=== PATIENT | female | born 1995 | race Caucasian/White ===

== ENCOUNTER 2019-03-12 14:16 | Emergency (ER) | payer BC ==
[~2019-03-12] VITALS: Ht 160 cm; Wt 86.3 kg
--- NOTE | 2019-03-12 14:45 | NUR ---
NOTIFIED OF BUSY ER WITH POSSBILE LONG WAIT TIME.
[2019-03-12 18:12] LABS: BILIRUBIN,URINE NEGATIVE (NEGATIVE); CLARITY,URINE CLEAR; COLOR,URINE YELLOW; GLUCOSE, URINE (UA) NEGATIVE (NEGATIVE); KETONES,URINE 2+ (NEGATIVE); LEUKOCYTE ESTERASE ,URINE NEGATIVE (NEGATIVE); NITRITE,URINE NEGATIVE (NEGATIVE); PROTEIN,URINE NEGATIVE (NEGATIVE)
[2019-03-12 18:22] LABS: BACTERIA,URINE TRACE /HPF
--- NOTE | 2019-03-12 18:40 | ED GU-Female ---
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 STATES SHE FELT HER SELF AND THINKS SHE HAS A VAGINAL PROLAPSE. HAS BEEN INC OF URINE AT TIMES AND TROUBLE GOING WHEN SHE THINKS SHE NEEDS TO VOID. Nursing Sepsis Screen: No Definite Risk Source: patient Exam Limitations: no limitations History of Present Illness Date Seen by Provider: Mar 12, 2019 Time Seen by Provider: 18:38 Initial Comments To ER if vaginal pressure. This was after painful intercourse on Beth Golden, since then she did have one episode of urinary incontinence, concern she has a vaginal prolapse. Timing/Duration: yesterday, getting worse Severity/Quality: moderate Location: vaginal Activities at Onset: none Prior Genitourinary Problems: none Associated Symptoms: denies symptoms Allergies and Home Medications Allergies Coded Allergies: No Known Drug Allergies (Unverified , 03/12/19) Home Medications No Active Prescriptions or Reported Meds Patient Home Medication List Home Medication List Reviewed: Yes Review of Systems Review of Systems Constitutional: see HPI EENTM: see HPI Respiratory: no symptoms reported Cardiovascular: no symptoms reported Genitourinary: see HPI Musculoskeletal: see HPI Skin: no symptoms reported Psychiatric/Neurological: No Symptoms Reported Past Edkphko-Kctier-Glstuq Hx Patient Social History Alcohol Use: Rarely Uses Recreational Drug Use: No Smoking Status: Never a Smoker Recent Foreign Travel: No Contact w/Someone Who Travel: No Recent Infectious Disease Expo: No Recent Hopitalizations: No Seasonal Allergies Seasonal Allergies: No Past Medical History Surgeries: No Respiratory: No Cardiac: No Neurological: No : 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 oz. kg; 33.00 BMI Method: General Appearance: WD/WN, no apparent distress HEENT: PERRL/EOMI, normal ENT inspection Respiratory: no respiratory distress, no accessory muscle use Gastrointestinal: normal bowel sounds, non tender Pelvic: normal external exam, other (no obvious prolapse of any sort on pelvic exam with Monique RN at the bedside. There is some cervical motion tenderness and cervical discharge however.) Extremities: normal range of motion Neurologic/Psychiatric: alert, normal mood/affect, oriented x 3 Skin: normal color, warm/dry Progress/Results/Core Measures Suspected Sepsis Recent Fever Within 48 Hours: No Infection Criteria Present: Suspected New Infection New/Unexplained Altered Menta: No Sepsis Screen: No Definite Risk SIRS Temperature: Pulse: 90 Respiratory Rate: 16 Blood Pressure 124 /83 Mean: 97 Results/Orders Lab Results Laboratory Tests Test 03/12/19 18:00 03/12/19 18:09 Range/Units Urine Color YELLOW Urine Clarity CLEAR Urine pH 6.0 5-9 Urine Specific [place] >=1.030 1.016-1.022 Urine Protein NEGATIVE NEGATIVE Urine Glucose (UA) NEGATIVE NEGATIVE Urine Ketones 2+ H NEGATIVE Urine Nitrite NEGATIVE NEGATIVE Urine Bilirubin NEGATIVE NEGATIVE Urine Urobilinogen 0.2 < = 1.0 MG/DL Urine Leukocyte Esterase NEGATIVE NEGATIVE Urine RBC (Auto) NEGATIVE NEGATIVE Urine RBC NONE /HPF Urine WBC 5-10 H /HPF Urine Crystals NONE /LPF Urine Bacteria TRACE /HPF Urine Casts NONE /LPF Urine Mucus NEGATIVE /LPF Urine Culture Indicated NO Micro Results Microbiology 03/12/19 Genital Culture, Resulted Pending 03/12/19 Wet Prep - Final, Resulted My Orders Orders - DAMARIS MASON APRN Wet Prep (03/12/19 17:55) Neisseria Gonorrhea Swab (03/12/19 17:55) Genital Culture (03/12/19 17:55) Urine Bedside (03/12/19 17:55) Ua Culture If Indicated (03/12/19 17:55) Chlamydia Trachomatis Swab (03/12/19 17:55) Ceftriaxone For Im Use (Rocephin For Im (03/12/19 19:00) Azithromycin Tablet (Zithromax Tablet) (03/12/19 19:00) Lidocaine 1% Inj 20 Ml (Xylocaine 1% Inj (03/12/19 19:00) Vital Signs/I&O 03/12/19 14:38 Temp 37.0 Pulse 90 Resp 16 B/P (MAP) 124/83 (97) Pulse Ox 100 O2 Delivery Room Air Capillary Refill : Less Than 3 Seconds Blood Pressure Mean: 97 Departure Impression Primary Impression: Cervicitis Disposition: 01 HOME, SELF-CARE Condition: Improved Departure-Patient Inst. Decision time for Depature: 18:49 Referrals: NO,LOCAL PHYSICIAN (PCP) Primary Care Physician REYNALDO EPPERSON ANGELA C DO Patient Instructions: NO INSTRUCTIONS GIVEN Add. Discharge Instructions: 1. We will call you if the culture results indicate need for further antibiotics. Follow-up with one of the air conditioning engineer/gynecologists listed. All discharge instructions reviewed with patient and/or family. Voiced understanding. Scripts No Active Prescriptions or Reported Meds DAMARIS MASON APRN Mar 12, 2019 18:40
[2019-03-12] MEDS ORDERED: AZITHROMYCIN 250 MG TAB (ZITHROMAX) PO SCH (19:00)
[2019-03-12] MEDS ORDERED: cefTRIAXone 1,000 MG/2.86 ml vial (IM ONLY) IM SCH (19:00)
[2019-03-12] MEDS ORDERED: LIDOCAINE 1% INJ 20 ML 20 ML VIAL INJ ONE (19:00)
[2019-03-12 19:03] VITALS: BP 109/84
[2019-03-17] MEDS ORDERED: FLUC150T PO (13:24)
== END 2019-03-12 19:03 | disposition home or self-care (01) ==
LOC: ER 14:18
DX: N72 Inflammatory disease of cervix uteri (principal)
CPT/HCPCS: 36415; 81000; 84703; 87070; 87205; 87210; 87491; 87591; 96372; 99284

== ENCOUNTER 2021-04-29 21:46 | Emergency (ER) | payer BC, OTHER ==
[~2021-04-29] VITALS: Ht 160 cm; Wt 88.0 kg
[~2021-04-29 21:46] MED LIST: FLUC150T PO
[2021-04-29 22:15] LABS: BASOPHILS % (AUTO) 0 % (0-10); EOSINOPHILS # (AUTO) 0.1 10^3/uL (0.0-0.3); EOSINOPHILS % (AUTO) 1 % (0-10); HEMATOCRIT 41 % (35-52); HEMOGLOBIN 13.5 g/dL (11.5-16.0); LYMPHOCYTES # (AUTO) 1.8 10^3/uL (1.0-4.0); LYMPHOCYTES % (AUTO) 19 % (12-44); MEAN CORPUSCULAR HEMOGLOBIN 29 pg (25-34); MEAN CORPUSCULAR HGB CONC 33 g/dL (32-36); MEAN CORPUSCULAR VOLUME 86 fL (80-99); MEAN PLATELET VOLUME 8.7 fL (9.0-12.2); MONOCYTES # (AUTO) 0.7 10^3/uL (0.0-1.0); MONOCYTES % (AUTO) 7 % (0-12); NEUTROPHILS # (AUTO) 6.8 10^3/uL (1.8-7.8); NEUTROPHILS % (AUTO) 72 % (42-75); PLATELET COUNT 389 10^3/uL (130-400); WHITE BLOOD COUNT 9.5 10^3/uL (4.3-11.0)
[2021-04-29 22:30] LABS: POTASSIUM 3.8 MMOL/L (3.6-5.0)
--- NOTE | 2021-04-29 22:34 | ED GU-Female ---
General Chief Complaint: - Reproductive Stated Complaint: BLEEDING, 6 WEEKS 5 DAYS Nursing Triage Note: REPORTS VAGINAL BLEEDING X2HRS, STATES 6 WEEKS . (ROBIN HEAD) History of Present Illness Date Seen by Provider: Apr 29, 2021 Time Seen by Provider: 21:55 Initial Comments 25-year-old female presents after a 2-hour history of vaginal bleeding, varying amounts. She is approximately 6 weeks gestation with her second , she is on certain of her blood type. She denies any abdominal pain or cramping. She has changed her pad once since symptoms began and mainly notices it when wiping after using the restroom. She has been having mild nausea in the evening and in the morning since early in . She has not seen her OB doctor yet. She had no complications with her previous . No aggressive physical activity or sexual intercourse today. She is not taking a vitamin, because of the nausea. History of depression, takes Zoloft. Timing/Duration: just prior to arrival Severity/Quality: mild Prior Genitourinary Problems: none Sexual [place] History: single partner, other (2 weeks) Associated Symptoms: denies symptoms (ROBIN HEAD) Allergies and Home Medications Allergies Coded Allergies: No Known Drug Allergies (Unverified , 03/12/19) Patient Home Medication List Home Medication List Reviewed: Yes (ROBIN HEAD) Fluconazole (Diflucan) 150 Mg Tablet, 150 MG PO DAILY, (Reported) Entered as Reported by: NORA LUNA on 03/17/19 1324 Review of Systems Review of Systems Constitutional: no symptoms reported, see HPI Genitourinary: see HPI, discharge (spotting, dark to bright blood. ) : Yes Expected Date of Delivery: Dec 23, 2021 LMP: Mar 13, 2021 (ROBIN HEAD) All Other Systemes Reviewed Negative Unless Noted: Yes (ROBIN HEAD) Past Zxwldjd-Hhzfnn-Zbfuwy Hx Patient Social History Tobacco Use?: No (second hand smoke exposure) Substance use?: No Alcohol Use?: No Pt feels they are or have been: No (ROBIN HEAD) Immunizations Up To Date First/Initial COVID19 Vaccinat: 05/08 Second COVID19 Vaccination Johnathon: 06/05 COVID19 Vaccine Jinrikisha Driver: MODERNLiv (ROBIN HEAD) Seasonal Allergies Seasonal Allergies: No (ROBIN HEAD BERTHA) Past Medical History Surgeries: No Respiratory: No Cardiac: No Neurological: No Expected Date of Delivery: Dec 23, 2021 Last Menstrual Period: Mar 13, 2021 Hx : 2 Hx Para: 1 Hx Total # of Abortions (Sp): 0 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 oz. kg; 34.00 BMI Method: General Appearance: WD/WN, no apparent distress, other (slightly tearful) Cardiovascular: normal peripheral pulses, regular rate, rhythm Respiratory: chest non-tender, lungs clear, normal breath sounds Gastrointestinal: normal bowel sounds, non tender, soft; No rebound, No tenderness Neurologic/Psychiatric: no motor/sensory deficits, alert, normal mood/affect, oriented x 3 Skin: normal color, warm/dry (ROBIN HEADP) Progress/Results/Core Measures Suspected Sepsis SIRS Temperature: Pulse: 93 Respiratory Rate: 16 Laboratory Tests 04/29/21 22:10: White Blood Count 9.5 Blood Pressure 131 /77 Mean: 95 Laboratory Tests 04/29/21 22:10: Creatinine 0.73, Platelet Count 389 (ROBIN HEADP) Results/Orders Lab Results Laboratory Tests Test 04/29/21 22:00 04/29/21 22:10 Range/Units Urine Color YELLOW Urine Clarity CLEAR Urine pH 6.0 5-9 Urine Specific [place] >=1.030 1.016-1.022 Urine Protein NEGATIVE NEGATIVE Urine Glucose (UA) NEGATIVE NEGATIVE Urine Ketones NEGATIVE NEGATIVE Urine Nitrite NEGATIVE NEGATIVE Urine Bilirubin NEGATIVE NEGATIVE Urine Urobilinogen 0.2 < = 1.0 MG/DL Urine Leukocyte Esterase NEGATIVE NEGATIVE Urine RBC (Auto) 1+ H NEGATIVE Urine RBC 2-5 H /HPF Urine WBC NONE /HPF Urine Squamous Epithelial Cells 0-2 /HPF Urine Crystals NONE /LPF Urine Bacteria TRACE /HPF Urine Casts NONE /LPF Urine Mucus NEGATIVE /LPF Urine Culture Indicated NO White Blood Count 9.5 4.3-11.0 10^3/uL Red Blood Count 4.72 3.80-5.11 10^6/uL Hemoglobin 13.5 11.5-16.0 g/dL Hematocrit 41 35-52 % Mean Corpuscular Volume 86 80-99 fL Mean Corpuscular Hemoglobin 29 25-34 pg Mean Corpuscular Hemoglobin Concent 33 32-36 g/dL Red Cell Distribution Width 11.9 10.0-14.5 % Platelet Count 389 130-400 10^3/uL Mean Platelet Volume 8.7 L 9.0-12.2 fL Immature Granulocyte % (Auto) 0 % Neutrophils (%) (Auto) 72 42-75 % Lymphocytes (%) (Auto) 19 12-44 % Monocytes (%) (Auto) 7 0-12 % Eosinophils (%) (Auto) 1 0-10 % Basophils (%) (Auto) 0 0-10 % Neutrophils # (Auto) 6.8 1.8-7.8 10^3/uL Lymphocytes # (Auto) 1.8 1.0-4.0 10^3/uL Monocytes # (Auto) 0.7 0.0-1.0 10^3/uL Eosinophils # (Auto) 0.1 0.0-0.3 10^3/uL Basophils # (Auto) 0.0 0.0-0.1 10^3/uL Immature Granulocyte # (Auto) 0.0 0.0-0.1 10^3/uL Sodium Level 137 135-145 MMOL/L Potassium Level 3.8 3.6-5.0 MMOL/L Chloride Level 103 98-107 MMOL/L Carbon Dioxide Level 21 21-32 MMOL/L Anion Gap 13 5-14 MMOL/L Blood Urea Nitrogen 15 7-18 MG/DL Creatinine 0.73 0.60-1.30 MG/DL Estimat Glomerular Filtration Rate 118 BUN/Creatinine Ratio 21 Glucose Level 96 70-105 MG/DL Calcium Level 10.0 8.5-10.1 MG/DL Human Chorionic Gonadotropin, Quant 14290 H <5 MIU/ML (BRANDEE MOSES DO) Vital Signs/I&O 04/29/21 04/29/21 04/29/21 21:56 21:56 23:20 Temp 36.1 36.3 Pulse 93 87 Resp 16 16 B/P (MAP) 131/77 (95) 129/68 Pulse Ox 99 99 100 O2 Delivery Room Air Room Air (BRANDEE MOSES DO) Vital Signs/I&O Capillary Refill : Less Than 3 Seconds (ROBIN HEAD) Blood Pressure Mean: 95 Progress Note : Time: 21:55 Progress Note Patient seen and evaluated, will obtain labs. Patient denies any needs for medications for nausea at this time. She is having no abdominal pain or cramping. 2300 serum hCG 15,000, patient continues to deny abdominal pain or cramping. All other labs normal. 2315 blood type A+. Patient ambulated to bathroom, no further vaginal bleeding on pad or when wiping. Discharge instructions and return precautions reviewed. (ROBIN HEAD) Departure Impression Primary Impression: Threatened in first trimester Disposition: 01 HOME, SELF-CARE Condition: Stable Departure-Patient Inst. Decision time for Depature: 22:30 (ROBIN HEAD) Referrals: NO,LOCAL PHYSICIAN (PCP) Primary Care Physician REYNALDO ROJAS DO Patient Instructions: Bleeding in Early (DC) Add. Discharge Instructions: Increase water intake, 16 ounces every 2 hours while awake. Try taking a vitamin, you can take it at lunch early afternoon when nausea is not present. Keep your scheduled appointment with your OB doctor. Monitor symptoms. Vaginal rest, nothing in vagina until you see Dr. Rojas. Use the Zofran every 6-8 hours as needed for nausea or vomiting. Return to the emergency department for new, urgent healthcare needs. Soaking pad, requiring changing it hourly for 2 hours in a row or associated abdominal pain with vaginal bleeding. All discharge instructions reviewed with patient and/or family. Voiced understanding. ATTENDING PHYSICIAN NOTE: I WAS PHYSICALLY PRESENT ER PHYSICIAN WHEN THIS PATIENT WAS IN ER, BUT I WAS NOT INVOLVED IN ANY DECISION MAKING OR ANY CARE OF THIS PATIENT. (BRANDEE MOSES DO) Copy Copies To 1: REYNALDO ROJAS AMY ARNP Apr 29, 2021 22:34 BRANDEE MOSES DO Apr 30, 2021 03:00
[2021-04-29 22:36] LABS: CREATININE SERUM 0.73 MG/DL (0.60-1.30)
[2021-04-29 22:42] LABS: BILIRUBIN,URINE NEGATIVE (NEGATIVE); CLARITY,URINE CLEAR; COLOR,URINE YELLOW; GLUCOSE, URINE (UA) NEGATIVE (NEGATIVE); KETONES,URINE NEGATIVE (NEGATIVE); LEUKOCYTE ESTERASE ,URINE NEGATIVE (NEGATIVE); NITRITE,URINE NEGATIVE (NEGATIVE); PROTEIN,URINE NEGATIVE (NEGATIVE)
[2021-04-29 22:51] LABS: BACTERIA,URINE TRACE /HPF; SQUAMOUS EPITHELIAL CELL,UR 0-2 /HPF
[2021-04-29] MEDS ORDERED: RX-ONDANSETRON 4 MG ODT (ZOFRAN) PPK #4 PO STA (23:04)
[2021-04-29 23:20] VITALS: BP 129/68
== END 2021-04-29 23:20 | disposition home or self-care (01) ==
LOC: EDUNIT# 21:46 → ER 21:52
DX: O20.0 Threatened abortion (principal); Z3A.01 Less than 8 weeks gestation of pregnancy
CPT/HCPCS: 36415; 80048; 81000; 84702; 84703; 85025; 86900; 86901

== ENCOUNTER → 2021-07-12 | Outpatient (CLI) | payer OTHER | LOC: LABNPT 13:24 | PROVIDERS: ATTEND Obstetrics & Gynecology | DX: Z36.89 Encounter for other specified antenatal screening (principal); Z3A.00 Weeks of gestation of pregnancy not specified | CPT/HCPCS: 82677; 84702; 86336 ==

== ENCOUNTER → 2021-08-02 | Outpatient (CLI) | payer OTHER, BC | LOC: CARD 08:44 | PROVIDERS: ATTEND Internal Medicine Cardiovascular Disease | DX: R42 Dizziness and giddiness (principal) | CPT/HCPCS: 93225; 93226; 93306 ==

== ENCOUNTER → 2021-08-02 | Outpatient (CLI) | payer OTHER, BC ==
--- NOTE | 2021-08-02 11:14 | Diagnostic Imaging Report ---
INDICATION: Supervision during normal . CORRELATION: None FINDINGS: Single viable intrauterine currently in a variable presentation, initially in a transverse orientation changing to breech presentation at time of scanning. Amount of amniotic fluid is normal at 17.8 cm. Placenta anterior and without evidence for previa. Visualized anatomical structures including the kidneys, bladder, stomach, four-chamber heart, three-vessel cord and insertion site, spine and extremities appearing unremarkable. However, there is question slight prominent appearance about the intracranial ventricles. Cervical length 3.5 cm. Maternal adnexa not visualized. Biometrical measurements are as follows: Biparietal 4.93 cm, age 21 weeks 0 days. Head circumference 18.61 cm, age 21 weeks 0 days. Abdominal circumference 14.46 cm, age 19 weeks 6 days. Femur length 3.20 cm, age 20 weeks 0 days. Sonographic estimate age: 20 weeks 4 days. Sonographic estimated date of delivery: 12/16/2021. Estimated Weight: 326 gm (+/- 48 gm). LMP percentile: 30%. heart rate: 150 beats per minute. number: 1 of 1. IMPRESSION: 1. Single viable intrauterine , currently in a variable presentation. Initially at transverse orientation, changing to breech presentation during imaging. 2. Sonographic estimated age 20 weeks 4 days, with an estimated date of delivery 12/16/2021. 3. There is question of mild hydrocephalus. Consideration for short-term follow-up imaging would be recommended for reassessment. Dictated by: Dictated on workstation # [id number]
== END ==
LOC: RAD 08:45
PROVIDERS: ATTEND Obstetrics & Gynecology
DX: Z34.02 Encounter for supervision of normal first pregnancy, second trimester (principal); Z3A.20 20 weeks gestation of pregnancy
CPT/HCPCS: 76805

== ENCOUNTER → 2021-08-25 | Outpatient (CLI) | payer BC, OTHER ==
--- NOTE | 2021-08-25 17:19 | Diagnostic Imaging Report ---
INDICATION: . COMPARISON: 08/02/2021. TECHNIQUE: Transabdominal ultrasound of the gravid uterus. FINDINGS: There is a single live intrauterine gestation in cephalic presentation. The placenta is anterior with no evidence of previa. The heart rate measures 155 BPM. A four-chamber heart is seen. The cerebellum and cisterna magna appear normal. The profile is seen. The nose and lips are seen. The amniotic fluid is subjectively normal. A vertical pocket measuring 4 cm is seen. Ventricles appear mildly prominent in size, measuring up to 8 mm which is at the upper limit of normal for this gestational age. IMPRESSION: 1. Single live intrauterine gestation. 2. Intracranial ventricles are at the upper limit of normal for this gestational age. Recommend continued follow-up. Dictated by: Dictated on workstation # [id number]
== END ==
LOC: RAD 15:15
PROVIDERS: ATTEND Obstetrics & Gynecology
DX: Z34.90 Encounter for supervision of normal pregnancy, unspecified, unspecified trimester (principal); Z3A.00 Weeks of gestation of pregnancy not specified
CPT/HCPCS: 76816

== ENCOUNTER 2021-12-15 11:50 | Outpatient (CLI) | payer OTHER ==
[~2021-12-15] VITALS: Ht 160 cm; Wt 94.8 kg
[2021-12-15 12:10] VITALS: BP 122/71
[2021-12-15 12:32] LABS: BILIRUBIN,URINE NEGATIVE (NEGATIVE); CLARITY,URINE SL CLOUDY; COLOR,URINE YELLOW; GLUCOSE, URINE (UA) NEGATIVE (NEGATIVE); KETONES,URINE NEGATIVE (NEGATIVE); LEUKOCYTE ESTERASE ,URINE TRACE (NEGATIVE); NITRITE,URINE NEGATIVE (NEGATIVE); PH,URINE 6.5 (5-9); PROTEIN,URINE NEGATIVE (NEGATIVE)
[2021-12-15 12:45] LABS: BACTERIA,URINE MODERATE /HPF
[2021-12-15 13:10] VITALS: BP_SYST 111; BP_SYST 122; BP_DIAS 64; BP_DIAS 71
[2021-12-15 13:40] VITALS: BP 111/66
[2021-12-15] MEDS ORDERED: CEPH500T PO (14:06)
--- NOTE | 2021-12-18 08:20 | Physician Query-Final Dx ---
GAYATHRI12/18/21 0820: Clinic Account Progress/Dx Physician Query: Please give diagnosis Please include #weeks gestation Date of Service Dec 15, 2021 at 11:50 REYNALDO EPPERSON DO 12/18/21 0918: Clinic Account Progress/Dx DIAGNOSIS: Diagnosis 40 week IUP Irregular contractions GAYATHRI,MarDec 18, 2021 08:20 REYNALDO EPPERSON DO Dec 18, 2021 09:18
== END 2021-12-15 14:12 | disposition home or self-care (01) ==
LOC: LDRP 11:50 → WSo 11:50
PROVIDERS: ATTEND Obstetrics & Gynecology
DX: O26.851 Spotting complicating pregnancy, first trimester (principal); O62.9 Abnormality of forces of labor, unspecified; Z3A.00 Weeks of gestation of pregnancy not specified
CPT/HCPCS: 81000; 87088

== ENCOUNTER 2021-12-17 05:50 | Inpatient (IN) | payer OTHER ==
[~2021-12-17] VITALS: Ht 160 cm; Wt 95.4 kg
[2021-12-17] VITALS (46 sets, daily range): BP systolic 101–135; BP diastolic 51–80
[~2021-12-17 05:50] MED LIST changes: +CEPH500T PO
[2021-12-17] MEDS ORDERED: SERT-413 PO (06:00)
[2021-12-17] MEDS ORDERED: D5 LR IV SOLUTION 1,000 ML IV ONE (06:33)
[2021-12-17 06:36] LABS: BILIRUBIN,URINE NEGATIVE (NEGATIVE); CLARITY,URINE CLEAR; COLOR,URINE YELLOW; GLUCOSE, URINE (UA) NEGATIVE (NEGATIVE); KETONES,URINE NEGATIVE (NEGATIVE); LEUKOCYTE ESTERASE ,URINE NEGATIVE (NEGATIVE); NITRITE,URINE NEGATIVE (NEGATIVE); PROTEIN,URINE NEGATIVE (NEGATIVE)
[2021-12-17 06:43] LABS: BACTERIA,URINE TRACE /HPF; SQUAMOUS EPITHELIAL CELL,UR 0-2 /HPF; WBC,URINE 0-2 /HPF
[2021-12-17 06:51] LABS: BASOPHILS % (AUTO) 0 % (0-10); EOSINOPHILS # (AUTO) 0.1 10^3/uL (0.0-0.3); EOSINOPHILS % (AUTO) 1 % (0-10); HEMATOCRIT 38 % (35-52); HEMOGLOBIN 12.9 g/dL (11.5-16.0); LYMPHOCYTES # (AUTO) 0.8 10^3/uL (1.0-4.0); LYMPHOCYTES % (AUTO) 11 % (12-44); MEAN CORPUSCULAR HEMOGLOBIN 29 pg (25-34); MEAN CORPUSCULAR HGB CONC 34 g/dL (32-36); MEAN CORPUSCULAR VOLUME 85 fL (80-99); MONOCYTES # (AUTO) 0.6 10^3/uL (0.0-1.0); MONOCYTES % (AUTO) 8 % (0-12); NEUTROPHILS # (AUTO) 5.8 10^3/uL (1.8-7.8); NEUTROPHILS % (AUTO) 79 % (42-75); PLATELET COUNT 237 10^3/uL (130-400); WHITE BLOOD COUNT 7.3 10^3/uL (4.3-11.0)
[2021-12-17] MEDS: D5 LR IV SOLUTION 1,000 ML IV SCH ×2 (06:57→14:25)
[2021-12-17] MEDS ORDERED: fentaNYL 2 mcg/ml BUPIVA 0.125 100 ML ONE (09:45)
[2021-12-17] MEDS ORDERED: OXYTOCIN PRE-MIX DRIP 500 ML IV SCH (10:15)
[2021-12-17] MEDS ORDERED: fentaNYL INJ 100 MCG/2 ML AMP ONE (11:08)
[2021-12-17] MEDS ORDERED: BUPIVACAINE 0.25% 30 ML (SENSORCAINE) VIAL ONE (11:08)
[2021-12-17] MEDS ORDERED: LIDOCAINE 1% INJ 10 ML VIAL ONE (11:33)
[2021-12-17] MEDS ORDERED: fentaNYL 2 mcg/ml BUPIVA 0.125 100 ML EPI SCH (12:00)
[2021-12-17] MEDS ORDERED: LACTATED RINGERS 1,000 ML IV SCH (12:00)
[2021-12-17] MEDS ORDERED: ONDANSETRON 4 MG/2 ML (SDV) Z0FRAN IV PRN (12:00)
[2021-12-17] MEDS ORDERED: NALOXONE 0.4 MG/ML 1 ML (NARCAN) VIAL IV PRN ×2 (12:00→15:30)
[2021-12-17] MEDS ORDERED: LIDOCAINE 1% INJ 10 ML VIAL INJ ONE (12:00)
[2021-12-17] MEDS ORDERED: diphenhydrAMINE 50 MG/ML INJ (BENADRYL) IV PRN (12:00)
--- NOTE | 2021-12-17 13:55 | History & Physical-OB ---
OB - Chief Complaint & HPI Date/Time Date of Admission: Date of Admission: Dec 17, 2021 at 06:20 Date seen by a Provider: Dec 17, 2021 Time Seen by a Provider: 13:20 Chief Complaint/History OB-Reason for Admission/Chief: Onset of Labor Hx : 2 Hx Para: 1 Expected Date of Delivery: Dec 18, 2021 Gestational Age in Weeks: 39 Gestational Age in Days: 6 Admission Nurse Assessment Rev: Yes History of Labs A pos Antibody neg RI RPR NR HBsAg NR HIV NR GC neg GBS neg Allergies and Home Medications Allergies Coded Allergies: No Known Drug Allergies (Unverified , 03/12/19) Patient Home Medication List Home Medication List Reviewed: Yes Sertraline HCl (Sertraline HCl) 50 Mg Tablet, 50 MG PO DAILY, (Reported) Entered as Reported by: KATIE GUZMAN on 12/17/21 0600 Last Action: Reviewed Discontinued Medications Cephalexin (Cephalexin) 500 Mg Tablet, 500 MG PO QID, (Reported) Discontinued Reason: No Longer Taking Entered as Reported by: GIRISH GALEANA on 12/15/21 1406 Last Action: Discontinued Fluconazole (Diflucan) 150 Mg Tablet, 150 MG PO DAILY, (Reported) Discontinued Reason: No Longer Taking Entered as Reported by: NORA LUNA on 03/17/19 1324 OB - History Hx of Present Care: Yes Ultrasounds: Normal mid trimester US Obstetrical Complications: None Medical Complications: None Patient Past Medical History na Social History/Family History 2nd Hand Smoke Exposure: No Immunizations Influenza Vaccine Up-to-Date: No; Not Current First/Initial COVID19 Vaccine: 05/08 Second COVID19 Vaccination: 06/05 COVID19 Vaccine Testing Director: Moderna Hepatitis B: Yes OB - Admission Exam Physical Exam Vitals: Vital Signs 12/17/21 12/17/21 12/17/21 12:30 12:36 12:45 Temp 36.4 Pulse 80 Resp 18 B/P (MAP) 105/67 (80) Pulse Ox 98 O2 Delivery Room Air HEENT: NCAT Heart: Rhythm Normal Lungs: Clear Abdomen: Gravid Extremities: Normal Reflexes: Normal Cervical Dilatation: 4cm Effacement: 75% Station: -1 Membranes: Ruptured Amniotic Fluid: Clear Heart Rate: 130's Accelerations: Accelerations Present Decelerations: No Decelerations Short Term Variability: Present Floor Helper Variability: Average (6-25) Contractions on Admission: 6-10 Minutes Apart Intensity: Mild Labs Laboratory Tests Test 12/17/21 06:10 12/17/21 06:30 Range/Units Urine Color YELLOW Urine Clarity CLEAR Urine pH 6.0 5-9 Urine Specific [place] >=1.030 1.016-1.022 Urine Protein NEGATIVE NEGATIVE Urine Glucose (UA) NEGATIVE NEGATIVE Urine Ketones NEGATIVE NEGATIVE Urine Nitrite NEGATIVE NEGATIVE Urine Bilirubin NEGATIVE NEGATIVE Urine Urobilinogen 0.2 < = 1.0 MG/DL Urine Leukocyte Esterase NEGATIVE NEGATIVE Urine RBC (Auto) NEGATIVE NEGATIVE Urine RBC NONE /HPF Urine WBC 0-2 /HPF Urine Squamous Epithelial Cells 0-2 /HPF Urine Crystals NONE /LPF Urine Bacteria TRACE /HPF Urine Casts NONE /LPF Urine Mucus NEGATIVE /LPF Urine Culture Indicated NO White Blood Count 7.3 4.3-11.0 10^3/uL Red Blood Count 4.48 3.80-5.11 10^6/uL Hemoglobin 12.9 11.5-16.0 g/dL Hematocrit 38 35-52 % Mean Corpuscular Volume 85 80-99 fL Mean Corpuscular Hemoglobin 29 25-34 pg Mean Corpuscular Hemoglobin Concent 34 32-36 g/dL Red Cell Distribution Width 12.6 10.0-14.5 % Platelet Count 237 130-400 10^3/uL Mean Platelet Volume 10.0 9.0-12.2 fL Immature Granulocyte % (Auto) 1 % Neutrophils (%) (Auto) 79 H 42-75 % Lymphocytes (%) (Auto) 11 L 12-44 % Monocytes (%) (Auto) 8 0-12 % Eosinophils (%) (Auto) 1 0-10 % Basophils (%) (Auto) 0 0-10 % Neutrophils # (Auto) 5.8 1.8-7.8 10^3/uL Lymphocytes # (Auto) 0.8 L 1.0-4.0 10^3/uL Monocytes # (Auto) 0.6 0.0-1.0 10^3/uL Eosinophils # (Auto) 0.1 0.0-0.3 10^3/uL Basophils # (Auto) 0.0 0.0-0.1 10^3/uL Immature Granulocyte # (Auto) 0.1 0.0-0.1 10^3/uL OB - Assessment/Plan/Diagnosis Assessment Assessment: active labor, rupture of membranes Admission Dx 26 yo @ 39.6 weeks Active labor GBS neg SROM Admission Status: Inpatient Order (span 2 midnights) Reason for Inpatient Admission: 26 yo @ 39.6 weeks Active labor Plan Plan: Expectant Management (will augment labor with pitocin if dysfunctional contraction pattern continues.) REYNALDO EPPERSON DO Dec 17, 2021 13:55
[2021-12-17] MEDS ORDERED: CATHETER FLUSH 10 ML SYR IV SCH ×2 (14:00→22:00)
[2021-12-17] MEDS ORDERED: LIDOCAINE/EPI 2% 1:200,00 (XYLOCAINE) 10 ML VIAL ONE (14:55)
[2021-12-17] MEDS: OXYTOCIN PRE-MIX DRIP 500 ML IV SCH ×2 (15:11→15:43)
--- NOTE | 2021-12-17 15:18 | OB Labor & Delivery Record ---
L&D History Date of Service Date of Service: Dec 17, 2021 History Expected Date of Delivery: Dec 18, 2021 Gestational Age in Weeks: 39 Hx : 2 Hx Para: 1 Complications Events: Routine care Operative Indications (Cesarea: N/A-Vaginal Delivery Intrapartal Events: None L&D Stage1 Stage One Onset of Labor - Date: Dec 17, 2021 Monitors and Tracing Monitor Mode: Internal Heart Rate: 130 Monitor Accelerations: Uniform Monitor Decelerations: Variable Station: -2 Fpc Variability: Average (6-10) Short Term Variability: Present Presentation: Vertex Vital Signs VS - Last 72 Hours, by Label 12/17/21 12/17/21 12/17/21 12/17/21 06:11 06:11 08:40 09:00 Temp 36.4 36.4 36.2 Pulse 83 83 75 80 Resp 18 18 18 B/P (MAP) 120/74 (89) 119/74 (89) 134/60 (84) Pulse Ox 97 97 O2 Delivery Room Air Room Air Room Air Room Air 12/17/21 12/17/21 12/17/21 12/17/21 09:30 10:10 10:45 11:15 Temp 36.4 Pulse 80 80 88 84 Resp 18 18 18 18 B/P (MAP) 116/70 (85) 126/72 (90) 135/64 (87) 119/80 (93) Pulse Ox 99 O2 Delivery Room Air Room Air Room Air Room Air 12/17/21 12/17/21 12/17/21 12/17/21 11:20 11:25 11:30 11:35 Pulse 86 88 94 94 Resp 18 18 18 18 B/P (MAP) 125/80 (95) 119/65 (83) 108/58 (75) 121/73 (89) Pulse Ox 98 98 O2 Delivery Room Air Room Air Room Air Room Air 12/17/21 12/17/21 12/17/21 12/17/21 11:40 11:45 11:50 11:53 Pulse 86 86 91 90 Resp 18 18 18 18 B/P (MAP) 120/69 (86) 120/70 (87) 101/70 (80) 108/71 (83) Pulse Ox 98 97 97 97 O2 Delivery Room Air Room Air Room Air Room Air 12/17/21 12/17/21 12/17/21 12/17/21 11:56 11:58 12:00 12:03 Pulse 84 82 83 86 Resp 18 18 18 18 B/P (MAP) 117/75 (89) 110/69 (83) 104/68 (80) 109/61 (77) Pulse Ox 97 97 96 97 O2 Delivery Room Air Room Air Room Air Room Air 12/17/21 12/17/21 12/17/21 12/17/21 12:06 12:10 12:13 12:15 Pulse 84 74 76 81 Resp 18 18 18 18 B/P (MAP) 107/63 (78) 101/59 (73) 112/63 (79) 116/64 (81) Pulse Ox 97 97 97 98 O2 Delivery Room Air Room Air Room Air Room Air 12/17/21 12/17/21 12/17/21 12/17/21 12:18 12:21 12:24 12:29 Pulse 80 79 86 71 Resp 18 18 18 18 B/P (MAP) 112/66 (81) 109/71 (84) 104/60 (75) 111/61 (78) Pulse Ox 97 95 98 98 O2 Delivery Room Air Room Air Room Air Room Air 12/17/21 12/17/21 12/17/21 12/17/21 12:30 12:33 12:36 12:45 Temp 36.4 Pulse 80 75 84 80 Resp 18 18 18 B/P (MAP) 112/55 (74) 114/71 (85) 105/67 (80) Pulse Ox 98 98 98 98 O2 Delivery Room Air Room Air Room Air Room Air 12/17/21 12/17/21 12/17/21 12/17/21 13:00 13:15 13:30 13:45 Pulse 80 72 71 68 B/P (MAP) 118/62 (80) 120/69 (86) 114/51 (72) 107/59 (75) Pulse Ox 97 97 99 99 O2 Delivery Room Air Room Air Room Air Room Air Rupture of Membranes Spontaneous Ruture of Membrane: Yes Amniotic Membrane Rupture Time: 0400 Amniotic Membrane Fluid Desc.: Clear Vaginal Bleeding Description: Normal Show Induction/Anesthesia Epidural Cath Placement - Time: 1137 Progress/Notes Patient admitted with SROM, dysfunction contraction pattern treated with pitocin augmentation followed by epidural placement. She progressed to complete and + 2 station L&D Stage2 Stage Two Stage II Date: Dec 17, 2021 Monitors and Tracing Monitor Mode: External Heart Rate: 130 Monitor Accelerations: Uniform Monitor Decelerations: Variable Qa Automation Engineer Variability: Average (6-10) Short Term Variability: Present Position: Right Occiput Anterior Presentation: Vertex Cord Descript/Complications Cord Vessel Description: 3 Vessels Complications nuchal cord reduced x 1 Delivery Type Infant Delivery Method: Spontaneous Vaginal Anterior Shoulder: Left Episiotomy/Perineal Laceration Laceraction(s)/Extensions: Yes Episiotomy Description: Perineal Extension/lac, 1st degree Degree (describe repair) laceration repaired using 3-0 rapide in usual fashion Condition of Delivery 1 minute Comment: 8 5 minute Comment: 9 Notes Live male infant weight 7lbs 9 oz Condition of Condition of Infant: Living Exam: No Observed Abnormalities Resuscitation Resuscitation: N/A - Spontaneous Resp L&D Stage3 Stage Three Stage III Date: Dec 17, 2021 Pictocin Pitocin Administration mu/min: 8 Pitocin ml/hr: 8 Pitocin Administration Comment: 30 mu wide open after delivery of placenta Placenta Delivery Placenta Delivery: Spontaneous Delivery Summary Summary Estimated blood loss (mL): 300 Attending at delivery: Reynaldo Epperson DO Condition of Delivery Examined: Cervix Examined, Uterus Explored Post Hemorrhage: No Condition of Mother stable Condition of Infant (s) stable REYNALDO EPPERSON DO Dec 17, 2021 15:18
[2021-12-17] MEDS ORDERED: DIBUCAINE 1% OINTMENT 30 GM TUBE TOP PRN (15:30)
[2021-12-17] MEDS ORDERED: MEASLES,MUMPS,RUBELLA 1 EA INJ SQ ONE (15:30)
[2021-12-17] MEDS ORDERED: TETANUS,DIPTH,PERTUSS P/F (BOOSTRIX) 0.5 ML VIAL IM ONE (15:30)
[2021-12-17] MEDS ORDERED: BENZOCAINE/MENTHOL (DERMOPLAST) 56 ML CAN TP PRN (15:30)
[2021-12-17] MEDS ORDERED: WITCH HAZEL(TUCKS) 40 EA JAR TOP PRN (15:30)
[2021-12-17] MEDS ORDERED: ACETAMINOPHEN 500 MG TAB (TYLENOL) PO PRN (15:30)
[2021-12-17] MEDS: IBUPROFEN 600 MG (MOTRIN) TAB PO SCH ×2 (15:43→20:58)
[2021-12-17] MEDS: DOCUSATE SODIUM 100 MG (COLACE) CAP PO SCH (20:58)
[2021-12-18 01:00] VITALS: BP 109/66
[2021-12-18] MEDS: IBUPROFEN 600 MG (MOTRIN) TAB PO SCH ×3 (02:16→14:32)
[2021-12-18 05:00] VITALS: BP 111/60
[2021-12-18 05:36] LABS: BASOPHILS % (AUTO) 0 % (0-10); EOSINOPHILS # (AUTO) 0.1 10^3/uL (0.0-0.3); EOSINOPHILS % (AUTO) 1 % (0-10); HEMATOCRIT 36 % (35-52); HEMOGLOBIN 11.7 g/dL (11.5-16.0); LYMPHOCYTES # (AUTO) 1.1 10^3/uL (1.0-4.0); LYMPHOCYTES % (AUTO) 16 % (12-44); MEAN CORPUSCULAR HEMOGLOBIN 29 pg (25-34); MEAN CORPUSCULAR HGB CONC 33 g/dL (32-36); MEAN CORPUSCULAR VOLUME 86 fL (80-99); MEAN PLATELET VOLUME 9.9 fL (9.0-12.2); MONOCYTES # (AUTO) 0.5 10^3/uL (0.0-1.0); MONOCYTES % (AUTO) 8 % (0-12); NEUTROPHILS # (AUTO) 5.2 10^3/uL (1.8-7.8); NEUTROPHILS % (AUTO) 75 % (42-75); PLATELET COUNT 202 10^3/uL (130-400); WHITE BLOOD COUNT 6.9 10^3/uL (4.3-11.0)
[2021-12-18] MEDS ORDERED: PRENATAL VITAMIN 1 EA TAB PO SCH (07:00)
[2021-12-18] MEDS ORDERED: FERROUS SULF 325 MG (IRON) TAB PO SCH (09:00)
[2021-12-18 09:15] VITALS: BP 124/71
[2021-12-18] MEDS: DOCUSATE SODIUM 100 MG (COLACE) CAP PO SCH (09:18)
--- NOTE | 2021-12-18 11:06 | Postpartum Progress Note ---
Note Note Day # 1 Subjective: Patient is without complaints. Ambulating, voiding. Tolerating a regular diet without nausea or vomiting. Normal lochia. Pain is well controlled with oral pain medications. Objective: Physical Exam: General - Alert and oriented, no apparent distress Abdomen - Soft, appropriately tender to palpation, non-distended, fundus firm at umbilicus Extremities - no edema, negative Shelton's bilaterally Assessment: PPD 1 NVD Plan: Routine care. Encourage breast feeding. Encourage ambulation. Ferrous sulfate supplementation. Plan for discharge Laboratory Tests Test 12/18/21 05:25 Range/Units White Blood Count 6.9 4.3-11.0 10^3/uL Red Blood Count 4.11 3.80-5.11 10^6/uL Hemoglobin 11.7 11.5-16.0 g/dL Hematocrit 36 35-52 % Mean Corpuscular Volume 86 80-99 fL Mean Corpuscular Hemoglobin 29 25-34 pg Mean Corpuscular Hemoglobin Concent 33 32-36 g/dL Red Cell Distribution Width 12.8 10.0-14.5 % Platelet Count 202 130-400 10^3/uL Mean Platelet Volume 9.9 9.0-12.2 fL Immature Granulocyte % (Auto) 0 % Neutrophils (%) (Auto) 75 42-75 % Lymphocytes (%) (Auto) 16 12-44 % Monocytes (%) (Auto) 8 0-12 % Eosinophils (%) (Auto) 1 0-10 % Basophils (%) (Auto) 0 0-10 % Neutrophils # (Auto) 5.2 1.8-7.8 10^3/uL Lymphocytes # (Auto) 1.1 1.0-4.0 10^3/uL Monocytes # (Auto) 0.5 0.0-1.0 10^3/uL Eosinophils # (Auto) 0.1 0.0-0.3 10^3/uL Basophils # (Auto) 0.0 0.0-0.1 10^3/uL Immature Granulocyte # (Auto) 0.0 0.0-0.1 10^3/uL Vitals - Labs Vital Signs - I&O Vital Signs Date Time Temp Pulse Resp B/P (MAP) Pulse Ox O2 Delivery O2 Flow Rate FiO2 12/18/21 09:15 36.4 85 18 124/71 (88) 98 Room Air 12/18/21 05:00 36.0 66 18 111/60 (77) 100 Room Air 12/18/21 01:00 36.1 83 18 109/66 (80) 98 Room Air 12/17/21 20:58 36.8 83 18 115/64 (81) 97 Room Air 12/17/21 16:17 65 18 114/70 (85) Room Air 12/17/21 16:02 69 18 114/71 (85) Room Air 12/17/21 15:47 71 18 112/69 (83) Room Air 12/17/21 15:32 83 18 118/68 (85) Room Air 12/17/21 15:17 36.4 85 18 123/75 (91) Room Air 12/17/21 15:07 90 18 120/73 (89) Room Air 12/17/21 15:00 81 18 118/74 (89) 99 Room Air 12/17/21 14:45 88 18 110/69 (83) 97 Room Air 12/17/21 14:30 70 18 114/68 (83) 98 Room Air 12/17/21 14:15 36.4 74 116/70 (85) 99 Room Air 12/17/21 14:00 74 110/61 (77) 96 Room Air 12/17/21 13:45 68 107/59 (75) 99 Room Air 12/17/21 13:30 71 114/51 (72) 99 Room Air 12/17/21 13:15 72 120/69 (86) 97 Room Air 12/17/21 13:00 80 118/62 (80) 97 Room Air 12/17/21 12:45 80 98 Room Air 12/17/21 12:36 84 18 105/67 (80) 98 Room Air 12/17/21 12:33 75 18 114/71 (85) 98 Room Air 12/17/21 12:30 36.4 80 18 112/55 (74) 98 Room Air 12/17/21 12:29 71 18 111/61 (78) 98 Room Air 12/17/21 12:24 86 18 104/60 (75) 98 Room Air 12/17/21 12:21 79 18 109/71 (84) 95 Room Air 12/17/21 12:18 80 18 112/66 (81) 97 Room Air 12/17/21 12:15 81 18 116/64 (81) 98 Room Air 12/17/21 12:13 76 18 112/63 (79) 97 Room Air 12/17/21 12:10 74 18 101/59 (73) 97 Room Air 12/17/21 12:06 84 18 107/63 (78) 97 Room Air 12/17/21 12:03 86 18 109/61 (77) 97 Room Air 12/17/21 12:00 83 18 104/68 (80) 96 Room Air 12/17/21 11:58 82 18 110/69 (83) 97 Room Air 12/17/21 11:56 84 18 117/75 (89) 97 Room Air 12/17/21 11:53 90 18 108/71 (83) 97 Room Air 12/17/21 11:50 91 18 101/70 (80) 97 Room Air 12/17/21 11:45 86 18 120/70 (87) 97 Room Air 12/17/21 11:40 86 18 120/69 (86) 98 Room Air 12/17/21 11:35 94 18 121/73 (89) 98 Room Air 12/17/21 11:30 94 18 108/58 (75) 98 Room Air 12/17/21 11:25 88 18 119/65 (83) Room Air 12/17/21 11:20 86 18 125/80 (95) Room Air 12/17/21 11:15 84 18 119/80 (93) 99 Room Air I & O 12/18/21 07:00 Intake Total 2150 ml Balance 2150 ml Labs Laboratory Tests 12/18/21 05:25: White Blood Count 6.9, Red Blood Count 4.11, Hemoglobin 11.7, Hematocrit 36, Mean Corpuscular Volume 86, Mean Corpuscular Hemoglobin 29, Mean Corpuscular Hemoglobin Concent 33, Red Cell Distribution Width 12.8, Platelet Count 202, M wilner Platelet Volume 9.9, Immature Granulocyte % (Auto) 0, Neutrophils (%) (Auto) 75, Lymphocytes (%) (Auto) 16, Monocytes (%) (Auto) 8, Eosinophils (%) (Auto) 1, Basophils (%) (Auto) 0, Neutrophils # (Auto) 5.2, Lymphocytes # (Auto) 1.1, Monocytes # (Auto) 0.5, Eosinophils # (Auto) 0.1, Basophils # (Auto) 0.0, Immature Granulocyte # (Auto) 0.0 REYNALDO EPPERSON DO Dec 18, 2021 11:06
[2021-12-18] MEDS ORDERED: ACET-93 PO (11:07)
[2021-12-18] MEDS ORDERED: BENZ78AE5 TP (11:07)
[2021-12-18] MEDS ORDERED: DOCU100C37 PO (11:07)
[2021-12-18] MEDS ORDERED: IBUP-844 PO (11:07)
--- NOTE | 2021-12-18 11:07 | Discharge Inst-Women's Service ---
Discharge Inst-Women's Serv Depart Medication/Instructions New, Converted or Re-Newed RX: Transmitted to Pharmacy Problems Reviewed?: Yes Consults/Follow Up Additional Follow Up: Yes Activity Activity: Activity as Tolerated Driving Instructions: No Driving for 1 Week NO SMOKING: NO SMOKING Nothing Inside Vagina: No Douching, No [place], No Tampons Diet Discharge Diet: No Restrictions Symptoms to Report to : Bleeding Excessive, Pain Increased, Fever Over 101 Degrees F, Vaginal Bleeding Increase, Questions/Concerns For Any Problems or Questions: Contact Your Physician REYNALDO EPPERSON DO Dec 18, 2021 11:07
[2021-12-18 12:10] VITALS: BP 120/73
--- NOTE | 2021-12-18 14:20 | Anesthesia-Regional Post-Op ---
Regional Patient Condition Mental Status: Alert, Oriented x3 Circulation: Same as Pre-Op Headache: Absent Sensation: Full Recovery Motor Block: Absent Post Op Complications Complications None Follow Up Care/Instructions Patient Instructions None needed. Anesthesia/Patient Condition Patient is doing well, no complaints, stable vital signs, no apparent adverse anesthesia problems. No complications reported per nursing. D/C home per [facility] [place]: Yes ERIC HARO CRNA Dec 18, 2021 14:20
[2021-12-18 17:15] VITALS: BP 124/62
[2021-12-18 18:00] VITALS: BP 124/62
== END 2021-12-18 18:00 | disposition home or self-care (01) | DRG 807 ==
LOC: WSo 05:50 → LDRP 05:51 → WSo 06:19 → LDRP 06:20
PROVIDERS: ADMIT Obstetrics & Gynecology; ATTEND Obstetrics & Gynecology
PROC: 10E0XZZ Delivery of Products of Conception, External Approach (ICD-10-PCS; principal; 2021-12-17)
PROC: 0HQ9XZZ Repair Perineum Skin, External Approach (ICD-10-PCS; 2021-12-17)
DX: O70.0 First degree perineal laceration during delivery (principal); Z37.0 Single live birth; Z3A.39 39 weeks gestation of pregnancy
CPT/HCPCS: 36415; 81000; 85025; 86850; 86900; 86901; 99212